=== PATIENT | male | born 1965 | race Caucasian/White ===

== ENCOUNTER 2020-05-06 12:01 | Emergency (ER) | payer BC ==
[~2020-05-06] VITALS: Ht 170.2 cm; Wt 72.6 kg
[2020-05-06] MEDS ORDERED: CLARITIN10 M3 PO (12:16)
[2020-05-06] MEDS ORDERED: PROAIR HFA8.5 GM INH (12:16)
[2020-05-06] MEDS ORDERED: ZPAK PO (12:44)
[2020-05-06] MEDS ORDERED: PREDNISONE 20 M20 MG PO (12:44)
[2020-05-06] MEDS ORDERED: APAP W/CODEINE1 TA2 PO (12:44)
[2020-05-06] MEDS ORDERED: TESSALON PERLE100 MG PO (12:44)
[2020-05-06] MEDS ORDERED: PROMETHAZI6.25 MG/5 PO (12:44)
[2020-05-06 12:55] VITALS: BP 133/84
== END 2020-05-06 12:55 | disposition home or self-care (01) ==
LOC: M.ERS 12:01
DX: U07.1 COVID-19 (principal); J22 Unspecified acute lower respiratory infection; J45.909 Unspecified asthma, uncomplicated; Z90.49 Acquired absence of other specified parts of digestive tract; Z79.899 Other long term (current) drug therapy

== ENCOUNTER 2020-05-09 06:35 | Inpatient (IN) | payer BC ==
[~2020-05-09] VITALS: Ht 170.2 cm; Wt 72.8 kg
[~2020-05-09 06:35] MED LIST: APAP W/CODEINE1 TA2 PO; CLARITIN10 M3 PO; PREDNISONE 20 M20 MG PO; PROAIR HFA8.5 GM INH; PROMETHAZI6.25 MG/5 PO; TESSALON PERLE100 MG PO; ZPAK PO
[2020-05-09 06:40] VITALS: BP 137/76
[2020-05-09 07:26] LABS: ICTOTEST (BILI CONFIRMATORY) Negative (Negative); URINE BILIRUBIN 1+ (Negative); URINE BLOOD NEGATIVE (Negative); URINE CLARITY CLEAR; URINE COLOR YELLOW; URINE GLUCOSE-RANDOM NEGATIVE (Negative); URINE KETONES TRACE (Negative); URINE LEUKOCYTES-REFLEX NEGATIVE (Negative); URINE NITRITE-REFLEX NEGATIVE (Negative); URINE PROTEIN 2+ (Negative)
[2020-05-09 07:27] LABS: HEMATOCRIT 37.1 % (42.0-52.0); MCH 32.7 pg (26.0-34.0); MCHC 35.1 g/dL (28.0-37.0); MCV 93.1 fL (80.0-100.0); NUCLEATED RBCS 0 /100WBC; PLATELET COUNT* 268 thou/uL (150-400); RBC 3.99 mil/uL (4.50-6.00); RDW-CV 12.6 % (10.5-14.5); WBC 7.6 thou/uL (4.0-11.0)
[2020-05-09 07:37] LABS: SQUAMOUS 4-10 Moderate /LPF (0-3)
[2020-05-09 07:38] LABS: BACTERIA-REFLEX 1-9 Few /HPF (None Seen); CASTS None Seen /LPF (None Seen); CRYSTALS None Seen /LPF (None Seen); MUCUS None Seen strn/LPF (None Seen); URINE RBC 0-2 Rare /HPF (0-2); URINE WBC-REFLEX 0-5 Rare /HPF (0-5)
[2020-05-09 07:39] LABS: CALCIUM 8.2 mg/dL (8.5-10.1); CREATININE 0.9 mg/dL (0.6-1.3); POTASSIUM 3.5 mmol/L (3.5-5.1)
[2020-05-09 07:41] LABS: PROTIME 10.2 Seconds (9.20-11.50)
[2020-05-09 07:50] LABS: MAGNESIUM 1.7 mg/dL (1.8-2.4); TOTAL BILIRUBIN 0.6 mg/dL (<0.1-1.0); TOTAL PROTEIN 7.2 g/dL (6.4-8.2)
[2020-05-09 08:11] LABS: ABSOLUTE LYMPHOCYTES 0.5 thou/uL (0.8-5.3); ABSOLUTE MONOCYTES 0.1 thou/uL (0.0-1.2); ABSOLUTE NEUTROPHILS 7.1 thou/uL (1.6-8.1)
[2020-05-09 08:12] LABS: PLATELET ESTIMATE ADEQUATE
[2020-05-09 10:33] VITALS: BP 125/74
[2020-05-09 11:11] VITALS: BP 126/82
[2020-05-09] MEDS ORDERED: LEVALBUTEROL TA15 GM INH (11:32)
[2020-05-09] MEDS ORDERED: FLONASE 0.05%50 MCG NARES (11:33)
[2020-05-09] MEDS ORDERED: ZYRTEC10 M5 PO (11:33)
[2020-05-09 19:22] VITALS: BP 122/68
[2020-05-09 20:20] VITALS: BP 93/55
[2020-05-10 04:33] LABS: HEMOGLOBIN 12.5 gm/dL (14.0-18.0); MCH 32.9 pg (26.0-34.0); MCHC 35.6 g/dL (28.0-37.0); MCV 92.4 fL (80.0-100.0); MPV 7.1 fl. (7.2-11.1); RBC 3.79 mil/uL (4.50-6.00); RDW-CV 12.2 % (10.5-14.5); WBC 8.8 thou/uL (4.0-11.0)
[2020-05-10 04:47] LABS: CALCIUM 9.1 mg/dL (8.5-10.1); CREATININE 0.8 mg/dL (0.6-1.3); POTASSIUM 4.2 mmol/L (3.5-5.1)
[2020-05-10 05:32] VITALS: BP 114/74
[2020-05-10 08:35] VITALS: BP 109/59
--- NOTE | 2020-05-10 09:18 | EKG ---
[place] [address] ELECTROCARDIOGRAM REPORT Name: MAURICIO CASTILLO Room: [address] ADM IN ..#: [id number] Admission: 05/09/20 Attend Phys: Danna Garcia MD Discharge: Date of : 67 Date of Service: 05/09/20711 Report #: [id number] THIS REPORT FOR: //name// [facility] ED Test Date: 2020-05-09 Test Time: 07:12:12 Pat Name: MAURICIO CASTILLO Department: Room: [facility] Gender: M Butcher Fish: REG : 1965 Requested By: Jasmyne Hahn Order Number: [id number] MD: Armando Mcarthur Measurements Intervals [place] Rate: 99 P: 43 WA: 162 QRS: 15 QRSD: 102 T: 33 QT: 332 QTc: 426 Interpretive Statements Sinus rhythm Abnormal R-wave progression, late transition No previous ECG available for comparison Electronically Signed On 05-10-2020 9:18:33 GEOMETRY TEACHER by Armando Mcarthur [email or web address] <ELECTRONICALLY SIGNED> By: Armando Mcarthur MD, [facility] 05/10/20917 1 1 Armando Mcarthur MD, [facility] /EPI
[2020-05-10 17:30] VITALS: BP 108/86
[2020-05-10 20:15] VITALS: BP 93/64
[2020-05-11 04:00] VITALS: BP 100/74
[2020-05-11 05:08] LABS: HEMATOCRIT 36.5 % (42.0-52.0); HEMOGLOBIN 12.7 gm/dL (14.0-18.0); MCH 32.4 pg (26.0-34.0); MCHC 34.7 g/dL (28.0-37.0); MCV 93.3 fL (80.0-100.0); MPV 7.2 fl. (7.2-11.1); RBC 3.92 mil/uL (4.50-6.00); RDW-CV 12.1 % (10.5-14.5); WBC 7.4 thou/uL (4.0-11.0)
[2020-05-11 05:25] LABS: CALCIUM 8.9 mg/dL (8.5-10.1); CREATININE 0.7 mg/dL (0.6-1.3); POTASSIUM 4.1 mmol/L (3.5-5.1)
[2020-05-11 08:45] VITALS: BP 128/78
[2020-05-11 12:28] LABS: ALBUMIN 2.8 g/dL (3.4-5.0); DIRECT BILIRUBIN 0.2 mg/dL (<0.1-0.3); TOTAL BILIRUBIN 0.4 mg/dL (<0.1-1.0); TOTAL PROTEIN 6.6 g/dL (6.4-8.2)
[2020-05-11 15:00] VITALS: BP 148/81
[2020-05-11 16:34] VITALS: BP 123/74
[2020-05-11 21:35] VITALS: BP 143/83
[2020-05-12 04:00] VITALS: BP 104/80
[2020-05-12 09:00] LABS: HEMATOCRIT 37.3 % (42.0-52.0); HEMOGLOBIN 13.2 gm/dL (14.0-18.0); MCH 33.1 pg (26.0-34.0); MCHC 35.4 g/dL (28.0-37.0); MCV 93.4 fL (80.0-100.0); MPV 7.1 fl. (7.2-11.1); RBC 3.99 mil/uL (4.50-6.00); RDW-CV 12.5 % (10.5-14.5); WBC 9.5 thou/uL (4.0-11.0)
[2020-05-12 09:16] LABS: ALBUMIN 2.9 g/dL (3.4-5.0); CALCIUM 8.9 mg/dL (8.5-10.1); CREATININE 0.8 mg/dL (0.6-1.3); TOTAL BILIRUBIN 0.5 mg/dL (<0.1-1.0); TOTAL PROTEIN 7.5 g/dL (6.4-8.2)
[2020-05-12 13:17] VITALS: BP 112/65
[2020-05-12 15:59] VITALS: BP 122/77
[2020-05-12 20:00] VITALS: BP 112/72
[2020-05-13] VITALS: BP 107/78
[2020-05-13 04:00] VITALS: BP 110/74
[2020-05-13 04:52] LABS: HEMOGLOBIN 12.2 gm/dL (14.0-18.0); MCH 31.6 pg (26.0-34.0); MCHC 34.1 g/dL (28.0-37.0); MCV 92.9 fL (80.0-100.0); MPV 7.2 fl. (7.2-11.1); NUCLEATED RBCS 0 /100WBC; PLATELET COUNT* 466 thou/uL (150-400); RBC 3.87 mil/uL (4.50-6.00); RDW-CV 12.3 % (10.5-14.5); WBC 8.4 thou/uL (4.0-11.0)
[2020-05-13 05:03] LABS: ALBUMIN 2.6 g/dL (3.4-5.0); CALCIUM 8.7 mg/dL (8.5-10.1); CREATININE 0.8 mg/dL (0.6-1.3); MAGNESIUM 2.2 mg/dL (1.8-2.4); POTASSIUM 4.2 mmol/L (3.5-5.1); TOTAL BILIRUBIN 0.6 mg/dL (<0.1-1.0); TOTAL PROTEIN 7.1 g/dL (6.4-8.2)
[2020-05-13 05:19] LABS: PHOSPHORUS* 4.7 mg/dL (2.5-4.9)
[2020-05-13 05:44] LABS: ABSOLUTE LYMPHOCYTES 0.5 thou/uL (0.8-5.3); ABSOLUTE NEUTROPHILS 7.9 thou/uL (1.6-8.1); ANISOCYTOSIS 1+; PLATELET ESTIMATE INCREASED; POIKILOCYTOSIS 1+
[2020-05-13 10:04] VITALS: BP 127/73
[2020-05-13 11:06] LABS: BE -0.3 mmol/L (-2 to +3); PCO2 36.5 mmHg (35.0-45.0); PO2 76.8 mmHg (75.0-100.0); pH 7.428 (7.340-7.450)
[2020-05-13 11:46] VITALS: BP 110/60
[2020-05-13 16:30] VITALS: BP 125/74
[2020-05-13 20:00] VITALS: BP 113/71
[2020-05-14 00:27] VITALS: BP 130/85
[2020-05-14 04:51] VITALS: BP 118/68
[2020-05-14 07:32] LABS: CREATININE 0.7 mg/dL (0.6-1.3)
[2020-05-14 08:10] VITALS: BP 111/66
[2020-05-14 10:53] LABS: BE -1.8 mmol/L (-2 to +3); PCO2 33.3 mmHg (35.0-45.0); pH 7.431 (7.340-7.450)
[2020-05-14 12:25] VITALS: BP 115/69
[2020-05-14 12:38] LABS: ABSOLUTE LYMPHOCYTES 0.5 thou/uL (0.8-5.3); ABSOLUTE MONOCYTES 0.4 thou/uL (0.0-1.2); ABSOLUTE NEUTROPHILS 11.4 thou/uL (1.6-8.1); HEMATOCRIT 35.8 % (42.0-52.0); HEMOGLOBIN 12.4 gm/dL (14.0-18.0); LYMPHOCYTES 3.8 %; MCH 32.4 pg (26.0-34.0); MCHC 34.5 g/dL (28.0-37.0); MCV 93.8 fL (80.0-100.0); MPV 7.7 fl. (7.2-11.1); NUCLEATED RBCS 0 /100WBC; PLATELET COUNT* 500 thou/uL (150-400); POLYS 93.2 %; RBC 3.82 mil/uL (4.50-6.00); RDW-CV 12.2 % (10.5-14.5); WBC 12.3 thou/uL (4.0-11.0)
[2020-05-14 12:50] LABS: ALBUMIN 2.6 g/dL (3.4-5.0); CALCIUM 8.5 mg/dL (8.5-10.1); MAGNESIUM 2.1 mg/dL (1.8-2.4); POTASSIUM 4.7 mmol/L (3.5-5.1); TOTAL BILIRUBIN 0.5 mg/dL (<0.1-1.0); TOTAL PROTEIN 6.3 g/dL (6.4-8.2)
[2020-05-14 16:41] VITALS: BP 119/78
[2020-05-14 21:22] VITALS: BP 113/73
[2020-05-15] VITALS: BP 109/72
[2020-05-15 04:00] VITALS: BP 109/72
[2020-05-15 05:12] LABS: ABSOLUTE LYMPHOCYTES 0.3 thou/uL (0.8-5.3); ABSOLUTE MONOCYTES 0.3 thou/uL (0.0-1.2); ABSOLUTE NEUTROPHILS 11.8 thou/uL (1.6-8.1); BASOPHILS 0.1 %; HEMATOCRIT 36.3 % (42.0-52.0); HEMOGLOBIN 12.6 gm/dL (14.0-18.0); LYMPHOCYTES 2.3 %; MCH 32.2 pg (26.0-34.0); MCHC 34.8 g/dL (28.0-37.0); MCV 92.4 fL (80.0-100.0); MPV 7.3 fl. (7.2-11.1); NUCLEATED RBCS 0 /100WBC; PLATELET COUNT* 539 thou/uL (150-400); POLYS 95.6 %; RBC 3.92 mil/uL (4.50-6.00); RDW-CV 12.3 % (10.5-14.5); WBC 12.4 thou/uL (4.0-11.0)
[2020-05-15 05:31] LABS: ALBUMIN 2.4 g/dL (3.4-5.0); CALCIUM 8.6 mg/dL (8.5-10.1); CREATININE 0.8 mg/dL (0.6-1.3); MAGNESIUM 2.3 mg/dL (1.8-2.4); POTASSIUM 4.1 mmol/L (3.5-5.1); TOTAL BILIRUBIN 0.5 mg/dL (<0.1-1.0); TOTAL PROTEIN 6.8 g/dL (6.4-8.2)
[2020-05-15 07:30] VITALS: BP 110/69
[2020-05-15 08:23] LABS: BE -1.1 mmol/L (-2 to +3); PCO2 34.4 mmHg (35.0-45.0); pH 7.432 (7.340-7.450)
[2020-05-15 13:22] VITALS: BP 115/74
[2020-05-15 17:10] VITALS: BP 123/69
[2020-05-15 21:00] VITALS: BP 110/71
[2020-05-16 00:53] VITALS: BP 112/71
[2020-05-16 04:45] VITALS: BP 113/72
[2020-05-16 09:19] LABS: CREATININE 0.7 mg/dL (0.6-1.3)
[2020-05-16 12:00] VITALS: BP 120/75
[2020-05-16 16:00] VITALS: BP 90/70
--- NOTE | 2020-05-16 19:07 | CON ---
[address] [address] CONSULTATION Name: MAURICIO CASTILLO Room: [address] IN .R.#: [id number] Admission: 05/09/20 Attend Phys: Danna Garcia MD Discharge: Date of : 67 Report #: [id number] THIS REPORT FOR: cc: Ra Jerome MD, Todd MD ~ Anastacio Thao MD DATE OF SERVICE: 05/12/2020 CONSULT REQUESTED BY: Dr. Deluna. INDICATION FOR CONSULTATION: Acute hypoxemic respiratory failure. HISTORY OF PRESENT ILLNESS: This is a 55-year-old gentleman. Past medical history is as mentioned below. This does include a history of bronchial asthma. The patient was seen in the Emergency Room on 05/06/2020 and then was admitted with COVID-19 to this hospital on 05/09/2020. The patient was hypoxemic on admission requiring 2 liters of oxygen to maintain O2 saturation in the low 90s. The patient did have significant elevation in LFTs. The patient was started on dexamethasone. His initial presentation was with increase in shortness of breath for about 1 week's duration. He had also reported fever and chills and a cough, but not much sputum production. The patient does have a history of asthma and has been using an albuterol inhaler more frequently recently. The patient did have a CTA chest performed which did show infiltrates consistent with COVID-19, but no pulmonary emboli were identified. He has also had a chest x-ray performed. When looking at these serially, it appears that the patient's chest x-ray performed today in fact looks better than the x-ray performed on the 05/09/2020. The infiltrates in fact look better, although there is increase in atelectasis. In contrast with this though, the patient is more hypoxemic now. He is now on 15 liters nasal cannula to maintain O2 saturation in the low 90s. He does report increasing shortness of breath as well. He has a low-grade fever at 37.7 degrees Celsius. His LFTs have been trending downwards. REVIEW OF SYSTEMS: The patient's review of systems is negative except as mentioned above. PAST MEDICAL HISTORY: Bronchial asthma. PAST SURGICAL HISTORY: Appendectomy. SOCIAL HISTORY: Lifetime nonsmoker. No known history of heavy alcohol use or illegal drug use. CURRENT MEDICATIONS: The list is in [facility] [place] [address] CONSULTATION Name: MAURICIO CASTILLO Room: [address]#: [id number] Admission: 05/09/20 Attend Phys: Danna Garcia MD Discharge: Date of : 67 Report #: [id number] FAMILY HISTORY: There is a history of coronary artery disease in his family. HOME MEDICATIONS: The list is in the ER records and reviewed. PHYSICAL EXAMINATION: GENERAL: The patient was lying prone as recommended. VITAL SIGNS: He had a pulse of 88 and a blood pressure 122/77, saturating 91%. He was on 15 liters via a green high-flow nasal cannula. His respiratory rate was elevated to 24. Temperature 37.7. HEENT: Head is normocephalic and atraumatic. NECK: Does not show raised JVP, asymmetry, mass or lymph nodes. CHEST: Symmetrical expansion on inspection and palpation. On auscultation, breath sounds are bilaterally equal, decreased. Expirations do appear to be prolonged. I do not hear any added sounds. HEART: Regular. There is no murmur. ABDOMEN: Soft and nontender. EXTREMITIES: Lower extremities show trace edema. No calf tenderness. SKIN: Dry and intact. NEUROLOGICAL: He moves all extremities bilaterally equally and spontaneously with no focal deficit identified. LABORATORY AND IMAGING DATA: The patient's chest x-rays are as described above. CT of chest also as described above. The patient's lab work as discussed above. Also, CBC as well as chemistries. D-dimer, urinalysis as well as COVID-19 testing are all reviewed and [facility] ASSESSMENT AND PLAN: 1. Acute hypoxemic respiratory failure secondary to COVID-19. Interestingly, although the infiltrates on his chest x-ray look better, he is more hypoxemic now. The patient does have more atelectasis. Therefore, I recommended that we should go ahead and place him on a BiPAP while asleep. I also would continue to recommend prone positioning when feasible during the daytime. This may, however, not be feasible when on BiPAP at night. Also, I would encourage the patient to ambulate to the chair as well during the daytime. We will continue to titrate oxygen. I would recommend running him on the component engineer side. There is 1 dose of Lasix ordered by Dr. Echeverria and I fully agree with this. We will watch potassium and replace as needed. 2. COVID-19. See discussion regarding steroid as below. Note that he did have significant elevation in LFTs initially and he has not been on remdesivir until today. I agree with the decision to go ahead and start remdesivir today as his LFTs have now trended downwards. We will watch his LFTs closely. We will [address] [place] [address] CONSULTATION Name: MAURICIO CASTILLO Room: [address] IN [facility]#: [id number] Admission: 05/09/20 Attend Phys: Danna Garcia MD Discharge: Date of : 67 Report #: [id number] discontinue remdesivir in case his LFTs rise significantly. The data regarding the use of convalescent plasma is equivocal. I do not feel strongly either way regarding giving him plasma now or holding off. I feel that it is reasonable to follow response to other measures first. 3. Bronchial asthma. I feel that likely there is a component of underlying bronchospasm as well. Also, note that his oxygen needs are increasing. Therefore, I do recommend that we use a higher dose of dexamethasone and I did increase his dexamethasone to 3 times a day. The patient remains on Xopenex. 4. Pulmonary infiltrates. Primarily, these are secondary to COVID-19. The patient is noted to also be on Levaquin. I feel that it is reasonable to cover with a broad spectrum antibiotic for secondary bacterial infections. 5. Elevated LFTs. These will need to be watched closely while the patient is on remdesivir. Note that the AST and ALT are trending downwards, but the alkaline phosphatase is still elevated. Therefore, I would recommend obtaining a right upper quadrant ultrasound to rule out obstruction in the biliary tract. I would also recommend obtaining a lipase level. 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 6. Deep vein thrombosis prophylaxis. The patient is on intermediate dose Lovenox. The patient is critically ill with acute hypoxemic respiratory failure secondary to COVID-19. Total time spent providing critical care to this patient today is 39 minutes. <ELECTRONICALLY SIGNED> By: Anastacio Thao MD 05/16/20 1907 [id number] Thao MD /nt
[2020-05-16 21:00] VITALS: BP 101/68
[2020-05-17 01:10] VITALS: BP 118/77
[2020-05-17 05:43] VITALS: BP 120/82
[2020-05-17 07:30] VITALS: BP 139/92
[2020-05-17 10:16] LABS: HEMATOCRIT 38.4 % (42.0-52.0); HEMOGLOBIN 13.2 gm/dL (14.0-18.0); MCHC 34.3 g/dL (28.0-37.0); MCV 93.3 fL (80.0-100.0); MPV 7.5 fl. (7.2-11.1); NUCLEATED RBCS 0 /100WBC; RBC 4.12 mil/uL (4.50-6.00); RDW-CV 12.6 % (10.5-14.5); WBC 13.9 thou/uL (4.0-11.0)
[2020-05-17 10:17] LABS: PLATELET COUNT* 345 thou/uL (150-400)
[2020-05-17 10:31] LABS: ALBUMIN 2.3 g/dL (3.4-5.0); CALCIUM 8.8 mg/dL (8.5-10.1); CREATININE 0.7 mg/dL (0.6-1.3); TOTAL BILIRUBIN 0.9 mg/dL (<0.1-1.0); TOTAL PROTEIN 7.1 g/dL (6.4-8.2)
[2020-05-17 11:04] LABS: ABSOLUTE LYMPHOCYTES 0.1 thou/uL (0.8-5.3); ABSOLUTE NEUTROPHILS 13.8 thou/uL (1.6-8.1); METAMYELOCYTES 1 %; PLATELET ESTIMATE ADEQUATE
[2020-05-17 12:01] VITALS: BP 107/70
[2020-05-17 16:00] VITALS: BP 140/79
[2020-05-17 21:00] VITALS: BP 111/75
[2020-05-18 00:46] VITALS: BP 135/80
[2020-05-18 05:17] VITALS: BP 113/74
[2020-05-18 08:00] VITALS: BP 111/76
[2020-05-18 11:56] VITALS: BP 131/81
[2020-05-18 13:52] LABS: ABSOLUTE LYMPHOCYTES 0.2 thou/uL (0.8-5.3); ABSOLUTE MONOCYTES 0.4 thou/uL (0.0-1.2); ABSOLUTE NEUTROPHILS 12.9 thou/uL (1.6-8.1); BASOPHILS 0.1 %; HEMATOCRIT 36.8 % (42.0-52.0); HEMOGLOBIN 12.6 gm/dL (14.0-18.0); LYMPHOCYTES 1.3 %; MCH 31.7 pg (26.0-34.0); MCHC 34.2 g/dL (28.0-37.0); MCV 92.5 fL (80.0-100.0); MONOCYTES 2.8 %; MPV 7.8 fl. (7.2-11.1); NUCLEATED RBCS 0 /100WBC; PLATELET COUNT* 357 thou/uL (150-400); POLYS 95.8 %; RBC 3.98 mil/uL (4.50-6.00); RDW-CV 12.5 % (10.5-14.5); WBC 13.5 thou/uL (4.0-11.0)
[2020-05-18 14:13] LABS: ALBUMIN 2.2 g/dL (3.4-5.0); CALCIUM 8.5 mg/dL (8.5-10.1); CREATININE 0.7 mg/dL (0.6-1.3); POTASSIUM 3.7 mmol/L (3.5-5.1); TOTAL BILIRUBIN 0.3 mg/dL (<0.1-1.0); TOTAL PROTEIN 6.9 g/dL (6.4-8.2)
[2020-05-18 15:00] VITALS: BP 131/83
[2020-05-18 20:45] VITALS: BP 123/80
[2020-05-19] VITALS: BP 118/75
[2020-05-19 04:00] VITALS: BP 129/80
[2020-05-19 05:18] LABS: ABSOLUTE LYMPHOCYTES 0.2 thou/uL (0.8-5.3); ABSOLUTE MONOCYTES 0.5 thou/uL (0.0-1.2); ABSOLUTE NEUTROPHILS 11.4 thou/uL (1.6-8.1); BASOPHILS 0.3 %; HEMATOCRIT 34.7 % (42.0-52.0); LYMPHOCYTES 1.3 %; MCH 31.9 pg (26.0-34.0); MCHC 34.5 g/dL (28.0-37.0); MCV 92.4 fL (80.0-100.0); MONOCYTES 3.9 %; MPV 7.6 fl. (7.2-11.1); NUCLEATED RBCS 0 /100WBC; PLATELET COUNT* 316 thou/uL (150-400); POLYS 94.5 %; RBC 3.76 mil/uL (4.50-6.00); RDW-CV 12.3 % (10.5-14.5)
[2020-05-19 05:31] LABS: CALCIUM 8.6 mg/dL (8.5-10.1); CREATININE 0.6 mg/dL (0.6-1.3); MAGNESIUM 2.3 mg/dL (1.8-2.4); POTASSIUM 4.1 mmol/L (3.5-5.1)
[2020-05-19 08:50] VITALS: BP 121/73
[2020-05-19 12:11] VITALS: BP 116/73
[2020-05-19 16:48] VITALS: BP 124/77
[2020-05-19 20:30] VITALS: BP 109/71
[2020-05-20] VITALS: BP 152/88
[2020-05-20 04:00] VITALS: BP 121/80
[2020-05-20 05:35] LABS: ABSOLUTE LYMPHOCYTES 0.3 thou/uL (0.8-5.3); ABSOLUTE MONOCYTES 0.7 thou/uL (0.0-1.2); ABSOLUTE NEUTROPHILS 13.8 thou/uL (1.6-8.1); BASOPHILS 0.1 %; HEMATOCRIT 36.6 % (42.0-52.0); HEMOGLOBIN 12.4 gm/dL (14.0-18.0); LYMPHOCYTES 2.2 %; MCH 31.6 pg (26.0-34.0); MCV 93.1 fL (80.0-100.0); MONOCYTES 4.7 %; MPV 7.9 fl. (7.2-11.1); NUCLEATED RBCS 0 /100WBC; PLATELET COUNT* 323 thou/uL (150-400); RBC 3.93 mil/uL (4.50-6.00); RDW-CV 12.3 % (10.5-14.5); WBC 14.8 thou/uL (4.0-11.0)
[2020-05-20 05:47] LABS: CALCIUM 8.8 mg/dL (8.5-10.1); CREATININE 0.6 mg/dL (0.6-1.3); POTASSIUM 4.6 mmol/L (3.5-5.1)
[2020-05-20 09:40] VITALS: BP 109/70
[2020-05-20 12:57] VITALS: BP 113/75
[2020-05-20 16:56] VITALS: BP 111/72
[2020-05-20 21:50] VITALS: BP 108/69
[2020-05-21] VITALS: BP 114/78
[2020-05-21 04:00] VITALS: BP 112/55
[2020-05-21 05:28] LABS: HEMATOCRIT 36.7 % (42.0-52.0); HEMOGLOBIN 12.6 gm/dL (14.0-18.0); MCH 31.7 pg (26.0-34.0); MCHC 34.3 g/dL (28.0-37.0); MCV 92.3 fL (80.0-100.0); NUCLEATED RBCS 0 /100WBC; PLATELET COUNT* 315 thou/uL (150-400); RBC 3.98 mil/uL (4.50-6.00); RDW-CV 12.6 % (10.5-14.5); WBC 11.9 thou/uL (4.0-11.0)
[2020-05-21 05:57] LABS: ALBUMIN 2.7 g/dL (3.4-5.0); CALCIUM 8.5 mg/dL (8.5-10.1); CREATININE 0.6 mg/dL (0.6-1.3); POTASSIUM 4.3 mmol/L (3.5-5.1); TOTAL BILIRUBIN 0.4 mg/dL (<0.1-1.0); TOTAL PROTEIN 6.6 g/dL (6.4-8.2)
[2020-05-21 06:22] LABS: ABSOLUTE LYMPHOCYTES 0.4 thou/uL (0.8-5.3); ABSOLUTE MONOCYTES 0.5 thou/uL (0.0-1.2); ABSOLUTE NEUTROPHILS 11.1 thou/uL (1.6-8.1); ANISOCYTOSIS 1+; LARGE PLATELETS OCCASIONAL; PLATELET ESTIMATE ADEQUATE; POIKILOCYTOSIS 1+
[2020-05-21 12:00] VITALS: BP 125/77
[2020-05-21 16:00] VITALS: BP 115/81; BP 125/86
[2020-05-21 21:00] VITALS: BP 114/77
[2020-05-22] VITALS: BP 114/74
[2020-05-22 04:00] VITALS: BP 113/71
[2020-05-22 05:40] LABS: ABSOLUTE LYMPHOCYTES 0.4 thou/uL (0.8-5.3); ABSOLUTE MONOCYTES 0.6 thou/uL (0.0-1.2); ABSOLUTE NEUTROPHILS 14.7 thou/uL (1.6-8.1); BASOPHILS 0.3 %; EOSINOPHILS 0.1 %; HEMATOCRIT 37.2 % (42.0-52.0); HEMOGLOBIN 12.8 gm/dL (14.0-18.0); LYMPHOCYTES 2.6 %; MCH 32.1 pg (26.0-34.0); MCHC 34.5 g/dL (28.0-37.0); MONOCYTES 3.8 %; MPV 8.1 fl. (7.2-11.1); NUCLEATED RBCS 0 /100WBC; PLATELET COUNT* 323 thou/uL (150-400); POLYS 93.2 %; RDW-CV 12.3 % (10.5-14.5); WBC 15.7 thou/uL (4.0-11.0)
[2020-05-22 05:57] LABS: ALBUMIN 3.2 g/dL (3.4-5.0); CALCIUM 8.7 mg/dL (8.5-10.1); CREATININE 0.6 mg/dL (0.6-1.3); POTASSIUM 4.5 mmol/L (3.5-5.1); TOTAL BILIRUBIN 0.4 mg/dL (<0.1-1.0); TOTAL PROTEIN 6.9 g/dL (6.4-8.2)
[2020-05-22 08:00] VITALS: BP 118/78
[2020-05-22 12:00] VITALS: BP 116/78
[2020-05-22 16:30] VITALS: BP 120/79
[2020-05-22 20:00] VITALS: BP 111/80
[2020-05-23] VITALS: BP 110/71
[2020-05-23 04:00] VITALS: BP 115/79
[2020-05-23 06:28] LABS: ABSOLUTE LYMPHOCYTES 0.3 thou/uL (0.8-5.3); ABSOLUTE MONOCYTES 0.5 thou/uL (0.0-1.2); ABSOLUTE NEUTROPHILS 14.3 thou/uL (1.6-8.1); BASOPHILS 0.2 %; HEMATOCRIT 36.6 % (42.0-52.0); HEMOGLOBIN 12.6 gm/dL (14.0-18.0); LYMPHOCYTES 2.3 %; MCH 31.8 pg (26.0-34.0); MCHC 34.5 g/dL (28.0-37.0); MCV 92.2 fL (80.0-100.0); MONOCYTES 3.1 %; NUCLEATED RBCS 0 /100WBC; PLATELET COUNT* 296 thou/uL (150-400); POLYS 94.4 %; RBC 3.97 mil/uL (4.50-6.00); RDW-CV 12.5 % (10.5-14.5); WBC 15.1 thou/uL (4.0-11.0)
[2020-05-23 07:05] LABS: CALCIUM 8.7 mg/dL (8.5-10.1); CREATININE 0.6 mg/dL (0.6-1.3)
[2020-05-23 07:08] LABS: POTASSIUM 4.9 mmol/L (3.5-5.1)
[2020-05-23 08:00] VITALS: BP 113/86
[2020-05-23 16:00] VITALS: BP 102/69
[2020-05-23 20:45] VITALS: BP 110/69
[2020-05-24] VITALS: BP 108/71
[2020-05-24 04:00] VITALS: BP 103/65
[2020-05-24 05:32] LABS: HEMATOCRIT 36.6 % (42.0-52.0); HEMOGLOBIN 12.7 gm/dL (14.0-18.0); MCH 32.3 pg (26.0-34.0); MCHC 34.7 g/dL (28.0-37.0); MPV 8.5 fl. (7.2-11.1); NUCLEATED RBCS 0 /100WBC; RBC 3.94 mil/uL (4.50-6.00); RDW-CV 12.3 % (10.5-14.5); WBC 17.2 thou/uL (4.0-11.0)
[2020-05-24 05:41] LABS: PLATELET COUNT* 221 thou/uL (150-400)
[2020-05-24 05:56] LABS: CALCIUM 8.2 mg/dL (8.5-10.1); CREATININE 0.5 mg/dL (0.6-1.3); MAGNESIUM 2.3 mg/dL (1.8-2.4); POTASSIUM 4.9 mmol/L (3.5-5.1)
[2020-05-24 07:10] LABS: ABSOLUTE LYMPHOCYTES 0.9 thou/uL (0.8-5.3); ABSOLUTE MONOCYTES 0.3 thou/uL (0.0-1.2); PLATELET ESTIMATE ADEQUATE
[2020-05-24] MEDS ORDERED: XANAX 0.5 MG0.5 MG PO (09:11)
[2020-05-24] MEDS ORDERED: LEVALBUTER1.25 MG/0. INH (09:11)
[2020-05-24 12:35] VITALS: BP 115/77
[2020-05-24 12:44] VITALS: BP 115/77
[2020-05-24 13:31] VITALS: BP 115/77
[2020-05-25] MEDS ORDERED: IPRAT-ALBUT 0.5-3 ML INH (10:58)
== END 2020-05-24 14:30 | disposition home health service (06) | DRG 177 ==
LOC: M.ERS 06:35 → M.TBA-ER 08:22 → M.ORTHSURG 08:22
PROVIDERS: Emergency Medicine; Internal Medicine; Internal Medicine Critical Care Medicine; ADMIT Family Medicine; ATTEND Family Medicine
PROC: 5A0935A Assistance with Respiratory Ventilation, Less than 24 Consecutive Hours, High Flow/Velocity Cannula (ICD-10-PCS; principal; 2020-05-11)
PROC: 5A0945A Assistance with Respiratory Ventilation, 24-96 Consecutive Hours, High Flow/Velocity Cannula (ICD-10-PCS; principal; 2020-05-11)
PROC: 5A09357 Assistance with Respiratory Ventilation, Less than 24 Consecutive Hours, Continuous Positive Airway Pressure (ICD-10-PCS; 2020-05-12)
PROC: XW033E5 Introduction of Remdesivir Anti-infective into Peripheral Vein, Percutaneous Approach, New Technology Group 5 (ICD-10-PCS; 2020-05-12)
PROC: 5A09357 Assistance with Respiratory Ventilation, Less than 24 Consecutive Hours, Continuous Positive Airway Pressure (ICD-10-PCS; 2020-05-13)
PROC: 5A0935A Assistance with Respiratory Ventilation, Less than 24 Consecutive Hours, High Flow/Velocity Cannula (ICD-10-PCS; 2020-05-13)
PROC: 5A0935A Assistance with Respiratory Ventilation, Less than 24 Consecutive Hours, High Flow/Velocity Cannula (ICD-10-PCS; 2020-05-14)
PROC: B548ZZA Ultrasonography of Superior Vena Cava, Guidance (ICD-10-PCS; 2020-05-17)
PROC: 02HV33Z Insertion of Infusion Device into Superior Vena Cava, Percutaneous Approach (ICD-10-PCS; 2020-05-17)
PROC: 5A0945A Assistance with Respiratory Ventilation, 24-96 Consecutive Hours, High Flow/Velocity Cannula (ICD-10-PCS; 2020-05-19)
PROC: 5A0935A Assistance with Respiratory Ventilation, Less than 24 Consecutive Hours, High Flow/Velocity Cannula (ICD-10-PCS; 2020-05-22)
PROC: 5A0935A Assistance with Respiratory Ventilation, Less than 24 Consecutive Hours, High Flow/Velocity Cannula (ICD-10-PCS; 2020-05-23)
PROC: 5A0935A Assistance with Respiratory Ventilation, Less than 24 Consecutive Hours, High Flow/Velocity Cannula (ICD-10-PCS; 2020-05-24)
DX: U07.1 COVID-19 (principal); J96.01 Acute respiratory failure with hypoxia; J98.11 Atelectasis; J45.909 Unspecified asthma, uncomplicated; R79.89 Other specified abnormal findings of blood chemistry; J98.2 Interstitial emphysema; Z90.49 Acquired absence of other specified parts of digestive tract; Z79.899 Other long term (current) drug therapy; Z79.1 Long term (current) use of non-steroidal anti-inflammatories (NSAID); Z82.49 Family history of ischemic heart disease and other diseases of the circulatory system; Z68.25 Body mass index [BMI] 25.0-25.9, adult

== ENCOUNTER 2021-03-18 17:27 | Emergency (ER) | payer BC ==
[~2021-03-18] VITALS: Ht 170.2 cm; Wt 74.8 kg
[~2021-03-18 17:27] MED LIST changes: +FLONASE 0.05%50 MCG NARES; +IPRAT-ALBUT 0.5-3 ML INH; +LEVALBUTER1.25 MG/0. INH; +LEVALBUTEROL TA15 GM INH; +XANAX 0.5 MG0.5 MG PO; +ZYRTEC10 M5 PO
[2021-03-18] MEDS ORDERED: PROAIR HFA8.5 GM INH (17:39)
[2021-03-18] MEDS ORDERED: NEBULIZER MISCELL (17:39)
[2021-03-18] MEDS ORDERED: CLONAZEPAM 0.50.5 M1 PO (17:40)
[2021-03-18] MEDS ORDERED: BREO ELLIPTA 11 EACH INH (17:40)
[2021-03-18 17:56] LABS: INFLUENZA A ANTIGEN Negative (Negative); INFLUENZA B ANTIGEN Negative (Negative)
[2021-03-18 18:27] VITALS: BP 108/79
== END 2021-03-18 18:28 | disposition home or self-care (01) ==
LOC: M.ERS 17:27
PROVIDERS: Physician Assistant
DX: R06.02 Shortness of breath (principal); Z20.822 Contact with and (suspected) exposure to COVID-19; R05.9 Cough, unspecified; R53.1 Weakness; J45.909 Unspecified asthma, uncomplicated; Z90.49 Acquired absence of other specified parts of digestive tract; Z79.899 Other long term (current) drug therapy; Z91.048 Other nonmedicinal substance allergy status